=== PATIENT | female | born 1950 | race Two or more races ===

== ENCOUNTER → 2024-07-25 | Outpatient (CLI) | payer OTHER, SELFPAY ==
[2024-07-25 13:42] LABS: Glucose Estimated Average 117 mg/dL (80-131); Hemoglobin A1C 5.7 % Hgb (4.8-6.0)
[2024-07-25 13:47] LABS: Cardiac Risk Estimate 4.1 RATIO (3.7-5.6); Cholesterol 175 mg/dL (132-200); HDL Cholesterol 43 mg/dL (40-60); LDL Cholesterol,Calculated 97 mg/dL (0-130); Triglycerides 177 mg/dL (30-150)
== END | disposition home or self-care (01) ==
LOC: COPL 12:06
PROVIDERS: PCP Specialist; Referring Provider Specialist; Visit Provider Specialist
DX: E78.2 Mixed hyperlipidemia (principal); R73.01 Impaired fasting glucose; Z86.39 Personal history of other endocrine, nutritional and metabolic disease
CPT/HCPCS: 36415; 80061; 83036

== ENCOUNTER → 2024-09-24 | Outpatient (CLI) | payer OTHER, SELFPAY ==
--- NOTE | 2024-09-24 09:45 | XR_ITS ---
Examination: Screening digital mammography, bilateral Computer aided detection 3-D breast Tomosynthesis, bilateral Date and time of exam: September 24, 2024 0953 hours Compared to mammograms dating to April 06, 2020 Indication: Screening Technique: Nonmagnified MLO, CC views of the breasts to been obtained, reconstructed from 3-D Tomosynthesis images. R2 computer aided detection program utilized for evaluation of suspicious masses and/or abnormal calcifications. 3-D Tomosynthesis images obtained. Findings: Scattered areas of fibroglandular density. Benign calcifications. No interval suspicious masses Impression: BI-RADS category II: Benign Findings. Recommend 1 year follow-up mammogram.
== END | disposition home or self-care (01) ==
LOC: CDIM 09:23
PROVIDERS: Referring Provider Specialist; Visit Provider Specialist
DX: Z12.31 Encounter for screening mammogram for malignant neoplasm of breast (principal); R92.323 Mammographic fibroglandular density, bilateral breasts; R92.1 Mammographic calcification found on diagnostic imaging of breast
CPT/HCPCS: 77063; 77067

== ENCOUNTER → 2024-09-26 | Outpatient (CLI) | payer OTHER, SELFPAY ==
[2024-10-01 07:05] LABS: Fecal Globin Result NOT DETECTED (NOT DETECTED)
== END | disposition home or self-care (01) ==
LOC: SLDO 14:15
PROVIDERS: Referring Provider Specialist; Visit Provider Specialist
DX: Z12.11 Encounter for screening for malignant neoplasm of colon (principal)
CPT/HCPCS: 82274; G0328

== ENCOUNTER → 2024-12-10 | Outpatient (CLI) | payer OTHER, SELFPAY ==
[2024-12-10 11:59] LABS: Creatinine MALB Rnd Ur 210 mg/dL (30-125); Microalbumin Creat Ratio 4 mg/gCrea (<30); Microalbumin, Random Urine 8 mg/L (0-300)
[2024-12-10 12:10] LABS: Alanine Aminotransferase 16 U/L (10-49); Albumin, Serum 4.4 gm/dL (3.4-4.8); Albumin/Globulin Ratio 1.9 (1.2-2.2); Alkaline Phosphatase 75 U/L (46-116); Anion Gap 10 (7-16); Aspartate Amino Transferase 17 U/L (0-34); BUN/Creatinine Ratio 18 Ratio (12-20); Bilirubin,Total 0.5 mg/dL (0.3-1.2); Blood Urea Nitrogen 14 mg/dL (9-23); Calcium 9.0 mg/dL (8.3-10.6); Calcium (Corrected) 9.0 mg/dL (8.5-10.1); Carbon Dioxide 26.8 mMol/L (20.0-31.0); Cardiac Risk Estimate 4.2 RATIO (3.7-5.6); Chloride 106 mMol/L (98-107); Cholesterol 181 mg/dL (132-200); Creatinine (Component) 0.8 mg/dL (0.6-1.3); Free T4 (Free Thyroxine) 1.11 ng/dL (0.89-1.76); Globulin 2.3 gm/dL (2.3-3.5); Glucose 111 mg/dL (74-106); HDL Cholesterol 43 mg/dL (40-60); LDL Cholesterol,Calculated 85 mg/dL (0-130); Osmolality,Calculated 286 (275-295); Potassium 4.1 mMol/L (3.4-5.1); Sodium 143 mMol/L (136-145); Thyroid Stimulating Hormone 4.11 uIU/mL (0.55-4.78); Total Protein 6.7 gm/dL (5.7-8.2); Triglycerides 263 mg/dL (30-150); eGFR > 60 See Note
== END | disposition home or self-care (01) ==
LOC: COPL 10:11
PROVIDERS: PCP Specialist; Referring Provider Specialist; Visit Provider Specialist
DX: E03.8 Other specified hypothyroidism (principal); I10 Essential (primary) hypertension; E78.2 Mixed hyperlipidemia
CPT/HCPCS: 36415; 80053; 80061; 82043; 82570; 84439; 84443

== ENCOUNTER → 2025-02-17 | Outpatient (CLI) | payer OTHER, SELFPAY ==
[2025-02-17 11:35] LABS: Glucose Estimated Average 120 mg/dL (80-131); Hemoglobin A1C 5.8 % Hgb (4.8-6.0)
[2025-02-17 11:52] LABS: Alanine Aminotransferase 17 U/L (10-49); Albumin, Serum 4.3 gm/dL (3.4-4.8); Albumin/Globulin Ratio 1.6 (1.2-2.2); Alkaline Phosphatase 68 U/L (46-116); Anion Gap 9 (7-16); Aspartate Amino Transferase 19 U/L (0-34); BUN/Creatinine Ratio 13 Ratio (12-20); Bilirubin,Total 0.6 mg/dL (0.3-1.2); Blood Urea Nitrogen 10 mg/dL (9-23); Calcium 9.1 mg/dL (8.3-10.6); Calcium (Corrected) 9.1 mg/dL (8.5-10.1); Carbon Dioxide 28.2 mMol/L (20.0-31.0); Cardiac Risk Estimate 4.1 RATIO (3.7-5.6); Chloride 104 mMol/L (98-107); Cholesterol 170 mg/dL (132-200); Creatinine (Component) 0.8 mg/dL (0.6-1.3); Free T4 (Free Thyroxine) 1.53 ng/dL (0.89-1.76); Globulin 2.7 gm/dL (2.3-3.5); Glucose 107 mg/dL (74-106); HDL Cholesterol 41 mg/dL (40-60); LDL Cholesterol,Calculated 94 mg/dL (0-130); Osmolality,Calculated 280 (275-295); Potassium 4.2 mMol/L (3.4-5.1); Sodium 141 mMol/L (136-145); Thyroid Stimulating Hormone 4.19 uIU/mL (0.55-4.78); Total Protein 7.0 gm/dL (5.7-8.2); Triglycerides 177 mg/dL (30-150); eGFR > 60 See Note
== END | disposition home or self-care (01) ==
LOC: COPL 10:43
PROVIDERS: PCP Specialist; Referring Provider Specialist; Visit Provider Specialist
DX: E03.8 Other specified hypothyroidism (principal); I10 Essential (primary) hypertension; R73.01 Impaired fasting glucose; E78.2 Mixed hyperlipidemia; Z86.39 Personal history of other endocrine, nutritional and metabolic disease
CPT/HCPCS: 36415; 80053; 80061; 83036; 84439; 84443

== ENCOUNTER 2025-04-15 02:36 | Emergency (ER) | payer OTHER, SELFPAY ==
[2025-04-15 02:37] VITALS: BMI 25.2
--- NOTE | 2025-04-15 02:41 | EKG_ITS ---
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
[2025-04-15 02:50] VITALS: BP 181/96; PULSE 97; RESP 19; TEMP 37; O2SAT 97
--- NOTE | 2025-04-15 03:11 | XR_ITS ---
EXAMINATION: PA chest single view TECHNIQUE: Upright PA chest single view Date and time: April 15, 2025, 0318 hours, comparison June 07, 2010 INDICATIONS: Onset chest pain today FINDINGS: Normal heart size Accentuation of bronchovascular markings. No lobar pneumonia or pulmonary edema IMPRESSION: Bronchitis pattern
--- NOTE | 2025-04-15 03:12 | PD.EDRME ---
Rapid Medical Screening Exam RME Arrival date/time: 04/15/25 02:36 74F with history of HTN , cholecystectomy and hypothyroidism presents to ED with 1 hour of heart palps, upper ab pain, and some hot flashes. Patient denies SOB, URI symptoms, and N/V. Chief Complaint: Arrhythmia/Palpitations Vital signs: Vital Signs Temperature 98.6 F 04/15/25 02:50 Pulse Rate 97 04/15/25 02:50 Respiratory Rate 19 04/15/25 02:50 Blood Pressure 181/96 H 04/15/25 02:50 Pulse Oximetry (%) 97 04/15/25 02:50 Oxygen Delivery Method Room Air 04/15/25 02:50 Exam: No ab tenderness Clinical Impression: anxiety vs gastritis vs ab pain vs ACS
[2025-04-15] MEDS: MG HYD/AL HYD/SIME (Maalox Reg) SUSP 30 ML UDC PO (03:16)
[2025-04-15] MEDS: FAMOTIDINE 20 MG TABLET PO (03:17)
[2025-04-15] MEDS: DIAZEPAM 5 MG TABLET PO (03:18)
[2025-04-15 03:41] LABS: Basophils # (Auto) 0.1 Thou/mm3 (0.0-0.2); Basophils % (Auto) 1 % (0-2.5); Eosinophils # (Auto) 0.2 Thou/mm3 (0.0-0.5); Eosinophils % (Auto) 2 % (0-10); Hematocrit 42.7 % (36.0-46.0); Hemoglobin 14.8 g/dL (12.0-16.0); Immature Granulocytes Auto 0.03 Thou/mm3 (0.00-0.00); Lymphocytes # (Auto) 2.6 Thou/mm3 (1.0-4.8); Lymphocytes % (Auto) 30 % (10-50); Mean Corpuscular HGB Conc 34.7 g/dl (31.0-37.0); Mean Corpuscular Hemoglobin 31.3 pg (25.0-35.0); Mean Corpuscular Volume 90 fL (80-100); Monocytes # (Auto) 0.6 Thou/mm3 (0.0-0.8); Monocytes % (Auto) 7 % (0-12); Neutrophils # (Auto) 5.1 Thou/mm3 (1.8-7.7); Neutrophils % (Auto) 60 % (37-80); Nucleated Red Blood Cell # 0.00 Thou/mm3 (0.00-0.00); Nucleated Red Blood Cell % 0 /100 WBC (0); Platelet Count 102 Thou/mm3 (140-440); RDW Standard Deviation 42.1 fL (36.4-46.3); Red Blood Count 4.73 Miln/mm3 (4.00-5.20); White Blood Count 8.5 Thou/mm3 (3.6-11.0)
--- NOTE | 2025-04-15 03:46 | PD.EDARRY ---
ED Arrhythmia Palp. RME/HPI General Chief Complaint: Arrhythmia/Palpitations Stated Complaint: FAST HEARTRATE, UPPER ABD PAIN, FEEL HOT Arrival date/time: 04/15/25 02:36 RME / HPI RME / HPI narrative: 04/15/25 02:36 74F with history of HTN , cholecystectomy and hypothyroidism presents to ED with 1 hour of heart palps, upper ab pain, and some hot flashes. Patient denies SOB, URI symptoms, and N/V. Dr. Damico?s Main ED Evaluation: 74yo female presenting with palpitations x 0130 with associated flushed sensation. No chest pain, shortness of breath, N/V, or diaphoresis. PMH includes HTN, ?DM, HTN, hypothyroidism, no history of aFib, TIA, or [place]. PSH includes cholecystectomy, tubal litigation. Nondrinker, nonsmoker, no illicit drug use. NKA. Related Data Home Medications ?Medication ?Instructions ?Recorded ?Confirmed amlodipine 5 mg-benazepril 20 mg 1 cap PO QDAY 02/13/19 02/16/19 capsule atorvastatin 10 mg tablet 10 mg PO QPM 02/13/19 02/16/19 cholecalciferol (vitamin D3) 1,250 50,000 unit PO QWEEK 02/13/19 02/16/19 mcg (50,000 unit) oral wafer (Replesta) levothyroxine 50 mcg tablet 50 mcg PO QDAY 02/13/19 02/16/19 metoprolol succinate 25 mg 25 mg PO QDAY 02/13/19 02/16/19 tablet,extended release 24 hr Previous Rx's ?Medication ?Instructions ?Recorded potassium chloride 20 mEq oral 20 meq PO QDAY #7 ea 02/13/19 packet famotidine 40 mg tablet (Pepcid) 40 mg PO QDAY #30 tabs 04/23/20 metoprolol tartrate 25 mg tablet 25 mg PO BID #10 tabs 04/15/25 Allergies Allergy/AdvReac Type Severity Reaction Status Date / Time No Known Allergies Allergy Verified 04/15/25 02:37 Review of Systems Review of Systems Systems Reviewed: All systems reviewed, normal except as documented Past Medical History Past Medical History CARDIAC: Positive Hypercholesterolemia and Hypertension; Negative Congestive Heart Failure RESPIRATORY: Negative Chronic Obstructive Pulmonary Disease (COPD) GENITOURINARY: Negative Renal Disease ENDOCRINE: Positive Hypothyroidism; Negative Diabetes Mellitus Type 1 or Diabetes Mellitus Type 2 Social History SMOKING STATUS: Never smoker SUBSTANCE USE: does not use ED Exam Narrative Physical exam: GENERAL APPEARANCE: alert and oriented x 4, nontoxic, well-developed, well-nourished, no acute distress VITALS: All vitals were reviewed and the pulse ox is 97% on room air, which is normal according to my interpretation. HEENT: Normocephalic, atraumatic; pupils equal, round, reactive to light; EOMI; mucous membranes pink, moist; oropharynx clear NECK: Supple LUNGS: CTABL; no wheezes, no rales, no rhonchi HEART: Regular rate, regular rhythm; normal S1, S2; no murmurs ABDOMEN: non distended; normal BS; soft, no tenderness, no guarding, no rebound; no masses, no organomegaly, no hernia BACK: no CVA tenderness EXTREMITIES: atraumatic; no edema NEUROLOGIC: awake; alert and oriented x4; cranial nerves II-XII grossly intact; no focal sensory or motor deficits PSYCHIATRIC: appropriate mood and affect SKIN: warm, dry, normal color; no rashes Course Quality Measures none Orders Category Date Time Status EKG (ED ONLY) *Do not use* NOW Care 04/15/25 02:41 Completed EKG (ED Only) Stat Exams 04/15/25 02:41 Draft XR chest 1V portable Stat Exams 04/15/25 03:11 Taken CBC Stat Lab 04/15/25 03:26 Completed Comprehensive Metabolic Panel Stat Lab 04/15/25 03:26 Received Lipase Stat Lab 04/15/25 03:26 Received Magnesium Stat Lab 04/15/25 03:26 Received Troponin I Stat Lab 04/15/25 03:26 Received Aspirin Med 04/15/25 03:11 Discontinued 325 mg PO X1 ONE Diazepam [Valium] Med 04/15/25 03:11 Discontinued 5 mg PO X1 ONE Famotidine [Pepcid] Med 04/15/25 03:11 Discontinued 20 mg PO X1 ONE mg Hyd/Al Hyd/Faina Susp [Maalox Susp] Med 04/15/25 03:11 Discontinued 30 ml PO X1 ONE Vital Signs Vital signs: Vital Signs Temperature 98.6 F 04/15/25 02:50 Pulse Rate 97 04/15/25 02:50 Respiratory Rate 19 04/15/25 02:50 Blood Pressure 181/96 H 04/15/25 02:50 Pulse Oximetry (%) 97 04/15/25 02:50 Oxygen Delivery Method Room Air 04/15/25 02:50 Arrhythmia/Palpitations MDM Narrative MDM Narrative:: Scribe Attestation: 04/15/25 - Tonia Sage am scribing for and in the presence of Dr. Damico. 74yo female presenting with palpitations x 0130 with associated flushed sensation. No chest pain, shortness of breath, N/V, or diaphoresis. Please see PE findings. Lab markers demonstrate normal WBC count, no anemia, mild thrombocytopenia, no left shift or bandemia, normal renal function. EKG without signs of acute ischemia, infarction, pericarditis, or accessory pathway. 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 Awaiting troponin #2 and if unremarkable, will re-assure the patient and discharge home. Will consider prescribing a pocket dose of metoprolol tartate 25mg should she have recurrent palpitations within 110 or greater lasting for more than 10 minutes. Patient data External records reviewed:: [facility] previous records (Per chart review, patient was seen here on 04/23/20 for abdominal pain.) Clinical information provided by:: patient Social determinants that could affect healthcare access:: none Patient has the following chronic illnesses:: HTN, HLD How is presenting disease/condition affected by chronic disease/condition?: uneffected by Evaluation data The following diagnostics were reviewed and interpreted by me:: lab results, radiology exam(s) and EKG tracing(s) Lab and/or radiology exams considered but not ordered:: none Interpretation Summary: CXR shows normal cardiac silhouette, no infiltrates, no pleural effusions, no vascular congestion, according to my interpretation. EKG done at 0242, NSR, rate of 93, no acute pathological ST segment changes, no ectopy, normal intervals, left axis deviation, according to my interpretation. Medications / Prescriptions Medications or Prescriptions considered but not ordered:: none Medication administrations:: Medication Administration History Discontinued Medications Al Hydrox/Mg Hydrox/Simethicone (Mg Hyd/Al Hyd/Faina (Maalox Reg) Susp 30 Ml Udc) 30 ml PO X1 ONE Stop: 04/15/25 03:12 Last Admin: 04/15/25 03:16 Dose: 30 ml Documented By: YANI Aspirin (Aspirin 325 Mg Tablet) 325 mg PO X1 ONE Stop: 04/15/25 03:12 Last Admin: 04/15/25 03:16 Dose: 325 mg Documented By: YANI Diazepam (Diazepam 5 Mg Tablet) 5 mg PO X1 ONE Stop: 04/15/25 03:12 Last Admin: 04/15/25 03:18 Dose: 5 mg Documented By: YANI Famotidine (Famotidine 20 Mg Tablet) 20 mg PO X1 ONE Stop: 04/15/25 03:12 Last Admin: 04/15/25 03:17 Dose: 20 mg Documented By: YANI see above Consultations Consultation(s) initiated? (list below): No Diagnosis Differential diagnosis arrhythmia/palpitations: palpitations, anxiety, sinus tachycardia, artial fibrillation and artial flutter Most likely diagnosis given after review of the tests above:: see clinical impression below Admission Indicated Admission indicated?: not indicated Admission Request Was there a request for admission?: No Disposition Plan Disposition Plan: Discharge Discharge Attestation Discharge Attestation: The patient and all family members were given an opportunity to ask questions and understood the discharge instructions. Discharge instructions specifically effects, indications for sooner follow up or return to the emergency department, and the expected course of current diagnosis. Patient condition: Stable Discharge Plan Plan Patient Disposition: HOME (Self Care) Discharge Disposition comment: stable Prescriptions/Referrals Prescriptions/Med Rec: New metoprolol tartrate 25 mg tablet 25 mg PO BID Qty: 10 0RF Rx Instructions: Take 1 tablet for sustained heart rate greater than 110 and associated palpitations. No Action famotidine [Pepcid] 40 mg tablet 40 mg PO QDAY Qty: 30 0RF atorvastatin 10 mg Tablet 10 mg PO QPM amlodipine-benazepril 5-20 mg Capsule 1 cap PO QDAY levothyroxine 50 mcg Tablet 50 mcg PO QDAY metoprolol succinate 25 mg Tablet Extended Release 24 Hr 25 mg PO QDAY Replesta 50,000 unit Wafer 50,000 unit PO QWEEK potassium chloride 20 mEq packet 20 meq PO QDAY Qty: 7 0RF Referrals: Rodger Romero MD [Primary Care Provider, Family Practice] - In 1 week Problem List Clinical Impression: Heart palpitations Impression comment: Acute palpitations Patient/Caregiver Discharge Instructions Discharge Activity: activity as tolerated Diet Instructions: Minimize caffeine intake. Increase fluid hydration. Education Materials: ED Palpitations Additional Instructions: Minimize caffeine intake and may use pocket dose of 25 mg tablet of metoprolol tartrate for recurrent palpitations in which heart rate greater than 110 Print Language: Sinhala Stand Alone Forms: [employer]af Award Info., Patient Portal Info Letter
[2025-04-15 03:55] LABS: Alanine Aminotransferase 17 U/L (10-49); Albumin, Serum 4.9 gm/dL (3.4-4.8); Albumin/Globulin Ratio 2.1 (1.2-2.2); Alkaline Phosphatase 88 U/L (46-116); Anion Gap 10 (7-16); Aspartate Amino Transferase 20 U/L (0-34); BUN/Creatinine Ratio 18 Ratio (12-20); Bilirubin,Total 0.3 mg/dL (0.3-1.2); Blood Urea Nitrogen 18 mg/dL (9-23); Calcium 9.3 mg/dL (8.3-10.6); Calcium (Corrected) 9.3 mg/dL (8.5-10.1); Carbon Dioxide 26.5 mMol/L (20.0-31.0); Chloride 105 mMol/L (98-107); Creatinine (Component) 1.0 mg/dL (0.6-1.3); Estimated Creatinine Clearance 40.1 mL/min (>60); Globulin 2.3 gm/dL (2.3-3.5); Glucose 156 mg/dL (74-106); Lipase 42 U/L (12-53); Magnesium 2.0 mg/dL (1.6-2.6); Osmolality,Calculated 286 (275-295); Potassium 3.6 mMol/L (3.4-5.1); Sodium 141 mMol/L (136-145); Total Protein 7.2 gm/dL (5.7-8.2); Troponin I < 0.002 ng/mL (0.0-0.045); eGFR 59 See Note
[2025-04-15 04:12] VITALS: BP 149/73; PULSE 74; RESP 16; TEMP 36.7; O2SAT 97
[2025-04-15 04:14] VITALS: PULSE 74
[2025-04-15 05:52] LABS: Thyroid Stimulating Hormone 1.25 uIU/mL (0.55-4.78); Troponin I < 0.020 ng/mL (0.0-0.045)
[2025-04-15 05:59] VITALS: BP 116/80; PULSE 71; RESP 16; TEMP 36.7; O2SAT 100
== END 2025-04-15 06:00 | disposition home or self-care (01) ==
PROVIDERS: Physician Assistant; Emergency Provider Emergency Medicine; PCP Specialist
DX: R00.2 Palpitations (principal); I10 Essential (primary) hypertension; E03.9 Hypothyroidism, unspecified
CPT/HCPCS: 36415; 71045; 80053; 83690; 83735; 84443; 84484; 85025; 93005; 99283; A9270

== ENCOUNTER → 2025-05-13 | Outpatient (CLI) | payer OTHER, SELFPAY ==
[2025-05-13 11:04] LABS: COVID-19 Antigen (In-House) Negative (Negative); Influenza A Ag Negative; Influenza B Ag Negative
== END | disposition home or self-care (01) ==
PROVIDERS: PCP Specialist; Referring Provider Specialist; Visit Provider Specialist
DX: R05.9 Cough, unspecified (principal); J02.9 Acute pharyngitis, unspecified
CPT/HCPCS: 87502; 87811